=== PATIENT | male | born 1985 | race Caucasian/White ===

== ENCOUNTER → 2021-02-02 | Outpatient (CLI) | payer OTHER ==
[2021-02-02] VITALS (11 sets, daily range): BP systolic 104–131; BP diastolic 37–75
[~2021-02-02] VITALS: Ht 180.3 cm; Wt 93.0 kg
[2021-02-02 11:39] LABS: HEMATOCRIT 42.7 % (42.0-52.0); HEMOGLOBIN 14.5 gm/dL (14.0-18.0); MCH 31.5 pg (26.0-34.0); MCV 92.5 fL (80.0-100.0); RBC 4.62 mil/uL (4.50-6.00); RDW 13.4 % (10.5-14.5); WBC 5.7 thou/uL (4.0-11.0)
[2021-02-02 11:46] LABS: CALCIUM 8.8 mg/dL (8.5-10.1); CREATININE 1.1 mg/dL (0.7-1.3); POTASSIUM 4.2 mmol/L (3.5-5.1)
--- NOTE | 2021-02-09 13:08 | PATH ---
[facility] [place] [address] PATHOLOGY RPT PROCEDURE Name: QUINN DILL Room #: REG [facility] M.Chris.#: [id number] Admission: 02/02/21 Date of : 83 Discharge: Report #: [id number] Path Case #: [id number] [facility] Accession Number: [id number] . 01 Material submitted: . liver - LIVER BIOPSY . 01 Clinical history: . 35-year-old male with recent group B Strep and Bacteroides identified in a rectal culture. The patient also has bloating, and abdominal pain. Increased LFTs (AST 80, ALT 131, alk phos 79, t-bili 0.8, albumin 4.3). ABEL+(1:80). ASMA, AMA, HAV, HBV, HCV - all negative. No current medications. Occasional alcohol. Abdominal ultrasound shows normal liver, with mobile calculus within the gallbladder. (NILSA:carter; 02/07/2021) . 02 Diagnosis: Liver, needle biopsy: - Mild lobular hepatitis. - Mild steatosis (less than 30%). - Negative for significant fibrosis. - Please see comment. . (NILSA:carter; 02/07/2021) QL 02/07/2021 1729 Local . 02 Comment: The liver biopsy shows minimal portal inflammation and minimal to mild spotty lobular necroinflammatory activity. There is also mild steatosis. The findings are nonspecific. The differential diagnosis would include drug/toxic reaction versus an infectious etiology versus a metabolic disorder, such a Ramiro's disease. To evaluate for the possibility of Ramiro's Disease the paraffin block will be forwarded for a quantitative copper study. The results will be the subject of a separately submitted clincal report. Histologic features of steatohepatitis, chronic hepatitis, or of a hepatobiliary process are not evident. . (MLK:carter; 02/07/2021) . 02 Electronically signed: . Elva Vergara MD, Pathologist NPI- [id number] . 01 Gross description: . The specimen is received in formalin, labeled "Quinn Dill, liver biopsy" and consists of 2 brown-velázquez cylindrical tissues (1.9 cm in length by 0.1 cm in diameter and 2.0 cm in length by 0.1 cm diameter). The [address] [address] PATHOLOGY RPT PROCEDURE Name: QUINN DILL Room #: REG TAVO Pierre#: [id number] Admission: 02/02/21 Date of : 83 Discharge: Report #: [id number] Path Case #: [id number] specimen is submitted in toto in A1-A2. (MAKAH; 02/02/2021) DKA/DKA 02/07/2021 1711 Local . 02 Microscopic: . A needle biopsy of the liver is available for review. The portal tracts are small. Most are devoid of inflammation, others display a minimal mixed inflammatory infiltrate. Lymphocytes predominate, with a rare eosinophil and plasma cell identified. There is no evidence of portal edema, ductular reaction, or significant interface activity. Interlobular bile ducts are present within most portal tracts examined and demonstrate minimal epithelial injury. . The hepatic parenchyma shows mild steatosis. Both macro and microvesicular types are identified. There is scattered spotty necroinflammatory activity. Rare apoptotic body formation is noted. Sinusoidal inflammatory cells are mostly lymphocytes. Glycogen is seen within hepatic nuclei focally. Central veins are unremarkable. . The trichrome stain fails to identify significant fibrous connective tissue deposition. The reticulin stain shows an overall intact hepatic reticulin framework pattern. Hepatic plates are of appropriate thickness throughout the majority of the biopsy. An occasionally thickened plate is noted compatible with localized regeneration. The PAS stain highlights glycogen within the hepatocytes as well as within focal hepatic nuclei. The PAS-D stain shows ceroid-laden Kupffer cells. The iron stain is negative. . Special stains: PAS with and without diastase, iron, trichrome, and reticulin (A1, A2). . (MLK:mml; 02/07/2021) . 02 Pathologist provided ICD-10: K75.9, K76.0 . 02 CPT . 351957, 496649, 712148, 760408, 672781, 295749, 093438, 337266, 871645, 772980, 376417 Specimen Comment: A courtesy copy of this report has been sent to [phone] Specimen Comment: Report sent to Specimen Comment: A duplicate report has been generated due to demographic updates. Performed at: [address], [place], [place] [id number] MD Abisai Jaimes MD Phone: [phone] [facility]formed at: [facility] [address] [place] [address] PATHOLOGY RPT PROCEDURE Name: QUINN DILL Room #: REG TAVO M.R.#: [id number] Admission: 02/02/21 Date of : 83 Discharge: Report #: [id number] Path Case #: [id number] [address] [id number] MD Juvenal Cordoba MD Phone: [phone]
== END | disposition home or self-care (01) ==
LOC: ULTRA 08:43 → SPEC 09:25 → ULTRA 13:16
PROVIDERS: ATTEND Internal Medicine Gastroenterology
DX: R94.5 Abnormal results of liver function studies (principal); K75.9 Inflammatory liver disease, unspecified; K76.0 Fatty (change of) liver, not elsewhere classified